=== PATIENT | female | born 1990 | race Caucasian/White ===

== ENCOUNTER 2021-04-28 02:58 | Emergency (ER) | payer SELFPAY ==
[~2021-04-28] VITALS: Ht 170.2 cm; Wt 93.9 kg
[2021-04-28 02:58] VITALS: BP 126/86
== END 2021-04-28 03:44 | disposition home or self-care (01) ==
LOC: ER 03:03
DX: R25.3 Fasciculation (principal); R00.0 Tachycardia, unspecified; Z91.040 Latex allergy status

== ENCOUNTER 2021-08-31 | Emergency (ER) | payer SELFPAY ==
[~2021-08-31] VITALS: Ht 170.2 cm; Wt 94.8 kg
[2021-08-31 00:10] VITALS: BP 126/64
--- NOTE | 2021-08-31 00:34 | NUR ---
COVID SWAB COLLECETED AND SENT TO LAB
== END 2021-08-31 01:22 | disposition home or self-care (01) ==
LOC: ER 00:02
DX: M79.645 Pain in left finger(s) (principal); R43.9 Unspecified disturbances of smell and taste; Z20.822 Contact with and (suspected) exposure to COVID-19; S69.92XA Unspecified injury of left wrist, hand and finger(s), initial encounter; V48.4XXA Person boarding or alighting a car injured in noncollision transport accident, initial encounter; Y92.89 Other specified places as the place of occurrence of the external cause; Z91.040 Latex allergy status
CPT/HCPCS: 73140; 87426; 99284; C9803